=== PATIENT | female | born 1960 | race Caucasian/White ===

== ENCOUNTER → 2021-06-22 | Outpatient (CLI) | payer BC ==
--- NOTE | 2021-06-22 11:36 | Diagnostic Imaging Report ---
INDICATION: Back pain. COMPARISON: None. FINDINGS: Frontal and lateral radiographic views of the thoracic spine were obtained. There is mild levoscoliotic deformity of the mid and lower thoracic spine. AP static alignment is maintained. There is no significant jerrica or retrolisthesis. There is no evidence of jumped facets. The vertebral body heights are maintained. There is no acute fracture. There is multilevel intervertebral disc height loss with multilevel endplate osteophyte formations. Included portions of the lungs are clear. IMPRESSION: Degenerative changes but no acute fracture or dislocation of the thoracic spine. Dictated by: Dictated on workstation # [id number]
== END ==
LOC: RAD 10:03
PROVIDERS: ATTEND Registered Nurse
DX: M47.814 Spondylosis without myelopathy or radiculopathy, thoracic region (principal)
CPT/HCPCS: 72070

== ENCOUNTER → 2021-09-09 | Outpatient (CLI) | payer BC ==
[~2021-09-09] MED LIST: CATHETER FLUSH 10 ML SYR IVP PRN
--- NOTE | 2021-09-09 17:21 | Diagnostic Imaging Report ---
COMPARISON: None. RELEVANT CLINICAL HISTORY: Hypercalcemia. PROCEDURE: After injection of 20.3 mCi of technetium-99m Sestamibi, 20-minute and 2-hour imaging of the neck and chest is performed. Additional SPECT-CT was performed of the neck and chest. FINDINGS: The usual uptake of radiotracer in the salivary glands, thyroid gland, and myocardium is present on immediate imaging. On delayed imaging, there is a small amount of residual thyroid activity. There is no foci of abnormal uptake. IMPRESSION: 1. No focal persistent nodular uptake is seen to suggest parathyroid adenoma. 2. Delayed washout of radiotracer within the thyroid. This is nonspecific. Consider correlation with TSH levels and thyroid ultrasound. Dictated by: Dictated on workstation # [id number]
== END ==
LOC: CARD 11:33
PROVIDERS: ATTEND Family Medicine
DX: E83.52 Hypercalcemia (principal)
CPT/HCPCS: 78072

== ENCOUNTER → 2022-06-26 | Outpatient (CLI) | payer BC ==
--- NOTE | 2022-06-26 15:15 | Diagnostic Imaging Report ---
INDICATION: Right hip pain. COMPARISON: None available. TECHNIQUE: Two radiographs of the right hip dated 06/26/2022. FINDINGS: No acute fracture or dislocation. A 1 cm lucency is suggested overlying the right femoral neck on the frontal radiograph. Minimal joint space narrowing of the right hip. Right femoral head maintains its normal shape and contour. No significant osteophyte formation. The visualized right sacroiliac joint is intact. No suspicious radiopaque foreign body. IMPRESSION: Potential 1 cm lucency involving the right femoral neck. This may simply relate to overlying soft tissues and artifact though a true lucent lesion related to myeloma versus metastatic disease versus hyperparathyroidism could be considered. Recommend clinical correlation. If further evaluation is desired, a CT of the right hip could be performed. Dictated by: Dictated on workstation # [id number]
== END ==
LOC: RAD 10:24
PROVIDERS: ATTEND Registered Nurse
DX: M25.551 Pain in right hip (principal)
CPT/HCPCS: 73502